=== PATIENT | male | born 1940 | race Caucasian/White ===

== ENCOUNTER 2017-07-02 09:42 | Observation (INO) | payer MEDICARE ==
[~2017-07-02] VITALS: Ht 190.5 cm; Wt 109.3 kg
[2017-07-02 09:59] LABS: BASOPHILS % (AUTO) 0.7 % (0.0-5.0); EOSINOPHILS % (AUTO) 3.3 % (0.0-8.0); HEMATOCRIT 42.5 % (42-54); LYMPHOCYTES % (AUTO) 26.3 % (21.0-51.0); MEAN CORPUSCULAR HEMOGLOBIN 28.4 pg (27.0-33.0); MEAN CORPUSCULAR HGB CONC 32.9 g/dL (32.0-36.0); MEAN CORPUSCULAR VOLUME 86.2 fL (79-99); MONOCYTES % (AUTO) 8.6 % (3.0-13.0); NEUTROPHILS % (AUTO) 61.1 % (40.0-77.0); PLATELET COUNT (AUTO) 145 K/uL (130-400); RED BLOOD CELL COUNT(AUTO) 4.93 MIL/uL (4.50-6.20); RED CELL DISTRIBUTION WIDTH 14.9 % (11.0-15.5); WHITE BLOOD COUNT (AUTO) 5.3 K/uL (4.8-10.8)
[2017-07-02 10:07] LABS: CREATININE 1.1 mg/dL (0.5-1.5); POTASSIUM 4.3 mmol/L (3.5-5.1)
[2017-07-02 10:21] LABS: ALBUMIN 3.6 g/dL (3.5-5.0); BILIRUBIN,TOTAL 0.8 mg/dL (0.2-1.0); CREATINE KINASE MB 1.7 ng/mL (0.5-3.6); TOTAL PROTEIN, SERUM 6.7 g/dL (6.0-8.3)
[2017-07-02 10:33] LABS: INR 0.95 (0.85-1.15); PARTIAL THROMBOPLASTIN TIME 24.8 SEC (26.3-35.5)
[2017-07-02] MEDS ORDERED: HYDRALAZINE HCL 20 MG/ML VIAL IV PRN (11:15)
[2017-07-02] MEDS ORDERED: LACTULOSE 20 GM/30 ML UDCUP PO PRN (11:15)
[2017-07-02] MEDS ORDERED: NITROGLYCERIN 1GM/1 INCH PACKET TD SCH (11:15)
[2017-07-02] MEDS ORDERED: ACETAMINOPHEN-CODEINE 300/30MG TAB PO PRN ×2 (11:15)
[2017-07-02] MEDS ORDERED: MAG HYDROX/AL HYDROX/SIMETH ES 30 ML SUSP UDCUP PO PRN (11:15)
[2017-07-02] MEDS ORDERED: MORPHINE SULFATE 4 MG/1ML SYG IV PRN (11:15)
[2017-07-02] MEDS ORDERED: POTASSIUM CHLORIDE 20 MEQ ERTAB PO PRN (11:15)
[2017-07-02] MEDS ORDERED: MORPHINE SULFATE 2 MG/ML 1ML SYG IV PRN (11:15)
[2017-07-02] MEDS ORDERED: ACETAMINOPHEN 325 MG TAB PO PRN ×2 (11:15)
[2017-07-02] MEDS ORDERED: LIDOCAINE HCL-MPF 1% 2ML VIAL IVP PRN (11:15)
[2017-07-02] MEDS ORDERED: POTASSIUM CHLORIDE 10% ELIXIR 20 MEQ/15 ML UDCUP PO PRN (11:15)
[2017-07-02] MEDS ORDERED: POTASSIUM CHLORIDE 20MEQ/100ML 100 ML IV PRN (11:15)
[2017-07-02] MEDS ORDERED: ONDANSETRON HCL 4 MG/2 ML VIAL IV PRN (11:15)
[2017-07-02] MEDS ORDERED: NITROGLYCERIN 0.4 MG SL TAB SL PRN (11:15)
[2017-07-02] MEDS ORDERED: GUAIFENESIN-DM 200/20 MG 10 ML PO PRN (11:15)
[2017-07-02] MEDS ORDERED: NITROGLYCERIN 1GM/1 INCH PACKET TD ONE (13:34)
[2017-07-02] MEDS ORDERED: IOPAMIDOL-370 100 ML VIAL IV ONE (13:50)
[2017-07-02 15:28] VITALS: BP 124/69
[2017-07-02] MEDS ORDERED: METO25TA3 PO (16:44)
[2017-07-02] MEDS ORDERED: TAMS0.4C32 PO (16:44)
[2017-07-02] MEDS ORDERED: LOVA40TA2 PO (16:44)
[2017-07-02] MEDS ORDERED: C,E,1CAP PO (16:44)
[2017-07-02] MEDS ORDERED: MAGN250T10 PO (16:44)
[2017-07-02] MEDS ORDERED: AEC81 PO (16:44)
[2017-07-02] MEDS ORDERED: GARL1000 PO (16:44)
[2017-07-02] MEDS ORDERED: ROPI5TAB2 PO (16:44)
[2017-07-02] MEDS ORDERED: FISH1CAP20 PO (16:44)
[2017-07-02] MEDS ORDERED: MULTIVITAMIN PO (16:44)
[2017-07-02 18:35] LABS: CREATINE KINASE MB 1.3 ng/mL (0.5-3.6); CREATINE KINASE, TOTAL 131 U/L (21-232); MYOGLOBIN 57 ng/mL (10-92); TROPONIN I < 0.04 ng/mL (0.00-0.06)
[2017-07-02 19:40] VITALS: BP 102/50
[2017-07-02] MEDS: METOPROLOL TARTRATE 25 MG TAB PO SCH (20:39)
[2017-07-02] MEDS: NITROGLYCERIN 1GM/1 INCH PACKET TD SCH (20:40)
[2017-07-02] MEDS ORDERED: GABA-531 PO (20:46)
[2017-07-02 23:58] VITALS: BP 111/55
[2017-07-03 03:48] VITALS: BP 124/68
[2017-07-03 04:31] LABS: CARBON DIOXIDE 28 mmol/L (21-32); CHLORIDE 106 mmol/L (101-111); CREATINE KINASE MB 1.2 ng/mL (0.5-3.6); CREATINE KINASE, TOTAL 129 U/L (21-232); GLOMERULAR FILTR. RATE CALC 77 mL/min (>60); GLUCOSE,RANDOM 102 mg/dL (70-105); MYOGLOBIN 65 ng/mL (10-92); POTASSIUM 4.5 mmol/L (3.5-5.1); SODIUM SERUM 141 mmol/L (136-145); TROPONIN I < 0.04 ng/mL (0.00-0.06); UREA NITROGEN, BLOOD 23 mg/dL (7-18)
[2017-07-03] MEDS: NITROGLYCERIN 1GM/1 INCH PACKET TD SCH ×2 (04:43→12:53)
[2017-07-03 07:35] VITALS: BP 115/63
[2017-07-03] MEDS ORDERED: PANTOPRAZOLE SODIUM 40 MG TABLET.DR PO SCH (09:00)
[2017-07-03] MEDS ORDERED: MAGNESIUM OXIDE 400 MG TABLET PO SCH (09:00)
[2017-07-03] MEDS ORDERED: ENOXAPARIN SODIUM 40 MG/0.4 ML SYRINGE SQ SCH (09:00)
[2017-07-03] MEDS ORDERED: GABAPENTIN 300 MG CAPSULE PO SCH (09:00)
[2017-07-03] MEDS ORDERED: ASPIRIN 81 MG EC TAB PO SCH (09:00)
[2017-07-03] MEDS ORDERED: MULTIVITAMIN TABLET PO SCH (09:00)
[2017-07-03] MEDS ORDERED: ASPIRIN 325 MG TABLET PO SCH (09:00)
[2017-07-03] MEDS: METOPROLOL TARTRATE 25 MG TAB PO SCH (09:09)
[2017-07-03 11:10] VITALS: BP 118/50
[2017-07-03] MEDS ORDERED: ATORVASTATIN CALCIUM 10 MG TABLET PO SCH (21:00)
[2017-07-03] MEDS ORDERED: ROPINIROLE HCL 5 MG TABLET PO SCH (21:00)
[2017-07-03] MEDS ORDERED: TAMSULOSIN HCL 0.4 MG CAP.ER.24H PO SCH (21:00)
[2017-08-18] MEDS ORDERED: MVIT PO (09:32)
[2017-08-21] MEDS ORDERED: CLOP75TA14 PO (09:46)
== END 2017-07-03 15:40 | disposition home or self-care (01) ==
LOC: EDH 09:42 → EDHIP 11:10 → 2AH 15:34
PROVIDERS: ADMIT Internal Medicine; ATTEND Internal Medicine
DX: R07.89 Other chest pain (principal); I25.10 Atherosclerotic heart disease of native coronary artery without angina pectoris; E78.5 Hyperlipidemia, unspecified; Z87.891 Personal history of nicotine dependence; Z82.49 Family history of ischemic heart disease and other diseases of the circulatory system; Z95.1 Presence of aortocoronary bypass graft; Z95.5 Presence of coronary angioplasty implant and graft
CPT/HCPCS: 36415 ×2; 71275; 80048; 80053; 82550 ×3; 82553 ×3; 83874 ×2; 84484 ×3; 85025; 85378; 85610; 85730; 93005; 93970; 96372; 99285; G0378 ×28; J1650; Q9967; 71010

== ENCOUNTER 2017-07-07 12:27 | Emergency (ER) | payer MEDICARE ==
[~2017-07-07 12:27] MED LIST: AEC81 PO; C,E,1CAP PO; FISH1CAP20 PO; GABA-531 PO; GARL1000 PO; LOVA40TA2 PO; MAGN250T10 PO; METO25TA3 PO; MULTIVITAMIN PO; ROPI5TAB2 PO; TAMS0.4C32 PO
[2017-08-18] MEDS ORDERED: MVIT PO (09:32)
[2017-08-21] MEDS ORDERED: CLOP75TA14 PO (09:46)
== END 2017-07-07 13:31 | disposition home or self-care (01) ==
LOC: EDH 12:27
DX: T16.1XXA Foreign body in right ear, initial encounter (principal); E78.5 Hyperlipidemia, unspecified; I25.10 Atherosclerotic heart disease of native coronary artery without angina pectoris; I10 Essential (primary) hypertension; Z95.0 Presence of cardiac pacemaker; Z88.0 Allergy status to penicillin; Z88.2 Allergy status to sulfonamides; X58.XXXA Exposure to other specified factors, initial encounter; Y93.89 Activity, other specified; Y92.89 Other specified places as the place of occurrence of the external cause; Y99.8 Other external cause status
CPT/HCPCS: 69200

== ENCOUNTER → 2017-07-27 | Outpatient (CLI) | payer MEDICARE ==
[~2017-07-27] MED LIST changes: +CLOP75TA14 PO; +MVIT PO
== END | disposition home or self-care (01) ==
LOC: SHCH 09:33
PROVIDERS: ATTEND Internal Medicine Cardiovascular Disease
DX: I51.7 Cardiomegaly (principal); Z95.0 Presence of cardiac pacemaker
CPT/HCPCS: 93306

== ENCOUNTER → 2017-08-03 | Outpatient (CLI) | payer MEDICARE ==
[~2017-08-03] MED LIST changes: +REGADENOSON 0.4 MG/5 ML PF SYG IVP SCH
== END | disposition home or self-care (01) ==
LOC: SHCH 08:51
PROVIDERS: ATTEND Internal Medicine Cardiovascular Disease
DX: I20.9 Angina pectoris, unspecified (principal)
CPT/HCPCS: 78452; 93017; 96374; A9500 ×2; J2785

== ENCOUNTER 2018-06-15 23:47 | Emergency (ER) | payer MEDICARE ==
[~2018-06-15 23:47] MED LIST changes: -GABA-531 PO; -MULTIVITAMIN PO; -REGADENOSON 0.4 MG/5 ML PF SYG IVP SCH; -ROPI5TAB2 PO; +ROPI5TAB4 PO
[2018-06-16] MEDS ORDERED: KETOROLAC TROMETHAMINE 15MG/ML ONE (00:12)
[2018-06-16 00:21] LABS: BASOPHILS % (AUTO) 0.9 % (0.0-5.0); EOSINOPHILS % (AUTO) 3.9 % (0.0-8.0); HEMATOCRIT 45.2 % (42-54); MEAN CORPUSCULAR HEMOGLOBIN 28.8 pg (27.0-33.0); MEAN CORPUSCULAR HGB CONC 33.4 g/dL (32.0-36.0); MEAN CORPUSCULAR VOLUME 86.2 fL (79-99); MONOCYTES % (AUTO) 12.5 % (3.0-13.0); NEUTROPHILS % (AUTO) 55.7 % (40.0-77.0); PLATELET COUNT (AUTO) 156 K/uL (130-400); RED BLOOD CELL COUNT(AUTO) 5.24 MIL/uL (4.50-6.20); RED CELL DISTRIBUTION WIDTH 14.7 % (11.0-15.5); WHITE BLOOD COUNT (AUTO) 5.1 K/uL (4.8-10.8)
[2018-06-16 00:28] LABS: CREATININE 1.2 mg/dL (0.5-1.5); POTASSIUM 4.5 mmol/L (3.5-5.1)
[2018-06-16 00:30] LABS: INR 0.95 (0.85-1.15); PARTIAL THROMBOPLASTIN TIME 25.4 SEC (26.3-35.5)
[2018-06-16 00:37] LABS: B-TYPE NATRIURETIC PEPTIDE 66 pg/mL (0-100)
[2018-06-16 00:39] LABS: ALBUMIN 3.6 g/dL (3.5-5.0); BILIRUBIN,TOTAL 0.6 mg/dL (0.2-1.0); TOTAL PROTEIN, SERUM 7.3 g/dL (6.0-8.3)
[2018-06-16 01:55] LABS: APPEARANCE,URINE Clear (CLEAR); BILIRUBIN,URINE Negative (NEGATIVE); COLOR,URINE Yellow (YELLOW); GLUCOSE, URINE (UA) Negative (NEGATIVE); KETONES,URINE Trace mg/dL (NEGATIVE); LEUKOCYTE ESTERASE ,URINE Negative (NEGATIVE); NITRATE,URINE Negative (NEGATIVE); OCCULT BLOOD,URINE Negative (NEGATIVE); PROTEIN,URINE Negative (NEGATIVE); UROBILINOGEN,URINE 0.2 mg/dL (0.2-1.0)
== END 2018-06-16 03:04 | disposition home or self-care (01) ==
LOC: EDH 23:47
DX: R10.9 Unspecified abdominal pain (principal); I10 Essential (primary) hypertension; I25.810 Atherosclerosis of coronary artery bypass graft(s) without angina pectoris; E78.5 Hyperlipidemia, unspecified; Z98.890 Other specified postprocedural states; Z87.891 Personal history of nicotine dependence
CPT/HCPCS: 36415; 71045; 74176; 80053; 81003; 82550; 83690; 83874; 83880; 84484; 85025; 85610; 85730; 93005; 96374; 99284; J1885

== ENCOUNTER 2018-10-08 22:42 | Emergency (ER) | payer MEDICARE ==
[2018-10-08] MEDS ORDERED: LIDOCAINE 5% TOPICAL PATCH TP ONE (23:38)
[2018-10-09] MEDS ORDERED: ASPIRIN 325 MG TABLET ONE (00:18)
== END 2018-10-09 01:20 | disposition home or self-care (01) ==
LOC: EDH 22:42
DX: I82.4Z1 Acute embolism and thrombosis of unspecified deep veins of right distal lower extremity (principal); E78.5 Hyperlipidemia, unspecified; I10 Essential (primary) hypertension; I25.810 Atherosclerosis of coronary artery bypass graft(s) without angina pectoris; Z95.1 Presence of aortocoronary bypass graft; Z95.0 Presence of cardiac pacemaker; Z88.0 Allergy status to penicillin; Z88.2 Allergy status to sulfonamides; Z79.899 Other long term (current) drug therapy
CPT/HCPCS: 93971

== ENCOUNTER → 2019-08-14 | Outpatient (CLI) | payer MEDICARE | END | disposition home or self-care (01) | LOC: SHCH 13:37 | PROVIDERS: ATTEND Internal Medicine Cardiovascular Disease | DX: I08.1 Rheumatic disorders of both mitral and tricuspid valves (principal); I10 Essential (primary) hypertension | CPT/HCPCS: 93306; 93356 ==

== ENCOUNTER → 2019-08-20 | Outpatient (CLI) | payer MEDICARE | END | disposition home or self-care (01) | LOC: SHCH 15:53 | PROVIDERS: ATTEND Internal Medicine Cardiovascular Disease | DX: R09.89 Other specified symptoms and signs involving the circulatory and respiratory systems (principal); R60.9 Edema, unspecified | CPT/HCPCS: 93880; 93970 ==

== ENCOUNTER 2019-09-06 16:10 | Observation (INO) | payer MEDICARE ==
[2019-09-06] MEDS ORDERED: ASPIRIN 325 MG TABLET ONE (16:34)
[2019-09-06 16:36] LABS: BASOPHILS % (AUTO) 0.6 % (0.0-5.0); EOSINOPHILS % (AUTO) 3.9 % (0.0-8.0); HEMATOCRIT 42.7 % (42-54); LYMPHOCYTES % (AUTO) 23.2 % (21.0-51.0); MEAN CORPUSCULAR HEMOGLOBIN 28.4 pg (27.0-33.0); MEAN CORPUSCULAR HGB CONC 32.6 g/dL (32.0-36.0); MEAN CORPUSCULAR VOLUME 87.1 fL (79-99); MONOCYTES % (AUTO) 8.7 % (3.0-13.0); NEUTROPHILS % (AUTO) 63.4 % (40.0-77.0); PLATELET COUNT (AUTO) 160 K/uL (130-400); RED CELL DISTRIBUTION WIDTH 13.7 % (11.0-15.5); WHITE BLOOD COUNT (AUTO) 5.1 K/uL (4.8-10.8)
[2019-09-06 16:48] LABS: CREATININE 1.4 mg/dL (0.5-1.5); POTASSIUM 4.7 mmol/L (3.5-5.1)
[2019-09-06 16:51] LABS: INR 0.99 (0.85-1.15); PARTIAL THROMBOPLASTIN TIME 26.8 SEC (26.3-35.5); PROTHROMBIN TIME 10.7 SEC (9.6-11.6)
[2019-09-06 16:53] LABS: ALBUMIN 3.6 g/dL (3.5-5.0); BILIRUBIN,TOTAL 0.7 mg/dL (0.2-1.0); TOTAL PROTEIN, SERUM 7.1 g/dL (6.0-8.3)
[2019-09-06] MEDS ORDERED: IOHEXOL-350 75 ML VIAL IV ONE (19:25)
[2019-09-06] MEDS ORDERED: ACETAMINOPHEN 325 MG TAB PO PRN ×2 (23:45)
[2019-09-06] MEDS ORDERED: ONDANSETRON HCL 4 MG/2 ML VIAL IV PRN (23:45)
[2019-09-07] MEDS ORDERED: NITROGLYCERIN 1GM/1 INCH PACKET TD SCH (00:15)
[2019-09-07] MEDS ORDERED: HEPARIN SODIUM 5000UNIT/ML 1ML VIAL SQ SCH (00:15)
[2019-09-07] MEDS ORDERED: HEPARIN SODIUM 5000UNIT/ML 1ML VIAL ONE (00:18)
[2019-09-07] MEDS ORDERED: NITROGLYCERIN 1GM/1 INCH PACKET TD ONE (00:18)
[2019-09-07 06:15] LABS: BASOPHILS % (AUTO) 0.7 % (0.0-5.0); EOSINOPHILS % (AUTO) 3.6 % (0.0-8.0); HEMATOCRIT 42.9 % (42-54); MEAN CORPUSCULAR HEMOGLOBIN 28.1 pg (27.0-33.0); MEAN CORPUSCULAR HGB CONC 31.9 g/dL (32.0-36.0); MEAN CORPUSCULAR VOLUME 88.1 fL (79-99); NEUTROPHILS % (AUTO) 57.5 % (40.0-77.0); PLATELET COUNT (AUTO) 143 K/uL (130-400); RED BLOOD CELL COUNT(AUTO) 4.87 MIL/uL (4.50-6.20); RED CELL DISTRIBUTION WIDTH 13.8 % (11.0-15.5); WHITE BLOOD COUNT (AUTO) 4.1 K/uL (4.8-10.8)
[2019-09-07 06:36] LABS: ALBUMIN 3.4 g/dL (3.5-5.0); BILIRUBIN,TOTAL 0.8 mg/dL (0.2-1.0); CREATININE 1.2 mg/dL (0.5-1.5); POTASSIUM 4.2 mmol/L (3.5-5.1); TOTAL PROTEIN, SERUM 6.8 g/dL (6.0-8.3)
[2019-09-07 07:00] VITALS: BP 127/64
[2019-09-07] MEDS ORDERED: ASPIRIN 81MG TAB.CHEW PO SCH (09:00)
[2019-09-07] MEDS ORDERED: FAMOTIDINE 20MG TAB 20 MG TAB PO SCH (09:00)
[2019-09-07] MEDS ORDERED: APIXABAN 2.5 MG TABLET PO ONE (09:02)
[2019-09-07] MEDS ORDERED: ROPI5TAB4 PO (09:02)
[2019-09-07] MEDS ORDERED: APIX5TAB PO (09:02)
[2019-09-07] MEDS ORDERED: MULT-729 PO (09:02)
[2019-09-07] MEDS ORDERED: VITS1TAB3 PO (09:02)
[2019-09-07] MEDS ORDERED: OMEG-96 PO (09:02)
[2019-09-07] MEDS ORDERED: ASPIRIN 81MG TAB.CHEW ONE (09:29)
[2019-09-07 11:00] VITALS: BP 131/64
--- NOTE | 2019-09-07 11:45 | NUR ---
PATIENT DISCHARGED HOME FROM ER AT THIS TIME; ALL DC INSTRUCTIONS GIVEN; NO NEW PRESCRIPTIONS; ALL QUESTIONS ANSWERED; PATIENT TO FOLLOW UP WITH IN [place]; AT BEDSIDE; PIV X2 REMOVED
== END 2019-09-07 11:49 | disposition home or self-care (01) ==
LOC: EDH 16:10 → EDHIP 23:40
PROVIDERS: ADMIT Internal Medicine; ATTEND Internal Medicine
DX: I82.433 Acute embolism and thrombosis of popliteal vein, bilateral (principal); I25.10 Atherosclerotic heart disease of native coronary artery without angina pectoris; I10 Essential (primary) hypertension; E78.5 Hyperlipidemia, unspecified; Z95.0 Presence of cardiac pacemaker; Z95.1 Presence of aortocoronary bypass graft; Z96.653 Presence of artificial knee joint, bilateral; Z88.0 Allergy status to penicillin; Z88.2 Allergy status to sulfonamides; Z87.891 Personal history of nicotine dependence; Z79.899 Other long term (current) drug therapy; Z90.49 Acquired absence of other specified parts of digestive tract
CPT/HCPCS: 36415 ×2; 71045; 71275; 80053 ×2; 80061; 82550; 84443; 84484 ×4; 85025 ×2; 85610; 85730; 93005 ×2; 99285; G0378 ×2; J1644; Q9967

== ENCOUNTER → 2020-07-02 | Outpatient (CLI) | payer MEDICARE ==
[~2020-07-02] MED LIST changes: -AEC81 PO; +APIX5TAB PO; -CLOP75TA14 PO; +MULT-729 PO; +OMEG-96 PO; -TAMS0.4C32 PO; +VITS1TAB3 PO
== END | disposition home or self-care (01) ==
LOC: SHCH 14:02
PROVIDERS: ATTEND Internal Medicine Cardiovascular Disease
DX: R60.9 Edema, unspecified (principal)
CPT/HCPCS: 93970

== ENCOUNTER → 2020-09-14 | Outpatient (CLI) | payer MEDICARE | END | disposition home or self-care (01) | LOC: SHCH 11:18 | PROVIDERS: ATTEND Internal Medicine Cardiovascular Disease | DX: I87.2 Venous insufficiency (chronic) (peripheral) (principal); Z09 Encounter for follow-up examination after completed treatment for conditions other than malignant neoplasm | CPT/HCPCS: 93971 ==

== ENCOUNTER → 2020-09-28 | Outpatient (CLI) | payer MEDICARE | END | disposition home or self-care (01) | LOC: SHCH 10:23 | PROVIDERS: ATTEND Internal Medicine Cardiovascular Disease | DX: Z09 Encounter for follow-up examination after completed treatment for conditions other than malignant neoplasm (principal); I87.2 Venous insufficiency (chronic) (peripheral) | CPT/HCPCS: 93971 ==

== ENCOUNTER 2021-06-26 12:50 | Emergency (ER) | payer MEDICARE ==
[~2021-06-26] VITALS: Ht 190.5 cm; Wt 108.9 kg
[2021-06-26] MEDS ORDERED: IPRATROPIUM/ALBUTEROL SULFATE 3 ML SOLUTION IH ONE ×2 (13:10→13:30)
[2021-06-26] MEDS ORDERED: PREDNISONE 20 MG TABLET ONE (13:17)
[2021-06-26] MEDS ORDERED: CEFTRIAXONE 1G VIAL ONE (13:17)
[2021-06-26] MEDS ORDERED: AZITHROMYCIN 250 MG TABLET PO ONE ×2 (13:18→13:30)
[2021-06-26 13:19] LABS: BASOPHILS % (AUTO) 0.4 % (0.0-5.0); EOSINOPHILS % (AUTO) 2.3 % (0.0-8.0); HEMATOCRIT 39.6 % (42-54); LYMPHOCYTES % (AUTO) 16.9 % (21.0-51.0); MEAN CORPUSCULAR HEMOGLOBIN 28.3 pg (27.0-33.0); MEAN CORPUSCULAR HGB CONC 31.8 g/dL (32.0-36.0); MONOCYTES % (AUTO) 10.3 % (3.0-13.0); NEUTROPHILS % (AUTO) 69.6 % (40.0-77.0); PLATELET COUNT (AUTO) 149 K/uL (130-400); RED BLOOD CELL COUNT(AUTO) 4.45 MIL/uL (4.50-6.20); RED CELL DISTRIBUTION WIDTH 13.4 % (11.0-15.5); WHITE BLOOD COUNT (AUTO) 7.9 K/uL (4.8-10.8)
[2021-06-26] MEDS ORDERED: PREDNISONE 20 MG TABLET PO ONE (13:30)
[2021-06-26] MEDS ORDERED: CEFTRIAXONE 1G VIAL IVP ONE (13:30)
[2021-06-26] MEDS ORDERED: ACETAMINOPHEN WITH CODEINE 1 TAB TAB PO ONE (13:30)
[2021-06-26 13:41] LABS: CREATININE 1.1 mg/dL (0.5-1.5); POTASSIUM 4.3 mmol/L (3.5-5.1)
[2021-06-26 13:47] LABS: ALBUMIN 3.3 g/dL (3.5-5.0); BILIRUBIN,TOTAL 1.1 mg/dL (0.2-1.0); CRP QUANTITATIVE 96.9 mg/L (0.00-9.0)
[2021-06-26 14:12] VITALS: BP 115/55
[2021-06-26] MEDS ORDERED: DOXY-336 PO (14:17)
[2021-06-26] MEDS ORDERED: ALBU8.5H8 IH (14:17)
[2021-06-26] MEDS ORDERED: PRED20TA3 PO (14:17)
[2021-06-26] MEDS ORDERED: ALBU2.5V2 IH (14:17)
[2021-06-26] MEDS ORDERED: D-ME1POW16 PO (14:17)
== END 2021-06-26 14:30 | disposition home or self-care (01) ==
LOC: EDH 12:50
DX: M94.0 Chondrocostal junction syndrome [Tietze] (principal); J40 Bronchitis, not specified as acute or chronic; Z20.822 Contact with and (suspected) exposure to COVID-19; Z88.2 Allergy status to sulfonamides; E78.00 Pure hypercholesterolemia, unspecified; E66.9 Obesity, unspecified; Z79.01 Long term (current) use of anticoagulants; Z79.52 Long term (current) use of systemic steroids; Z79.899 Other long term (current) drug therapy; Z88.0 Allergy status to penicillin; Z90.49 Acquired absence of other specified parts of digestive tract; Z95.1 Presence of aortocoronary bypass graft; Z95.810 Presence of automatic (implantable) cardiac defibrillator
CPT/HCPCS: 36415; 71045; 80053; 84484; 85025; 86140; 87635; 87804 ×2; 94640; 96374; 99284; C9803; J0696

== ENCOUNTER 2021-07-06 07:25 | Emergency (ER) | payer MEDICARE ==
[~2021-07-06] VITALS: Ht 190.5 cm; Wt 104.3 kg
[~2021-07-06 07:25] MED LIST changes: +ALBU2.5V2 IH; +ALBU8.5H8 IH; +D-ME1POW16 PO; +DOXY-336 PO; +PRED20TA3 PO
[2021-07-06 08:10] LABS: BASOPHILS % (AUTO) 0.4 % (0.0-5.0); EOSINOPHILS % (AUTO) 3.4 % (0.0-8.0); LYMPHOCYTES % (AUTO) 14.1 % (21.0-51.0); MEAN CORPUSCULAR HEMOGLOBIN 27.9 pg (27.0-33.0); MEAN CORPUSCULAR HGB CONC 31.9 g/dL (32.0-36.0); MEAN CORPUSCULAR VOLUME 87.5 fL (79-99); NEUTROPHILS % (AUTO) 74.5 % (40.0-77.0); PLATELET COUNT (AUTO) 142 K/uL (130-400); RED CELL DISTRIBUTION WIDTH 13.7 % (11.0-15.5)
[2021-07-06 08:15] LABS: CREATININE 1.1 mg/dL (0.5-1.5); POTASSIUM 4.1 mmol/L (3.5-5.1)
[2021-07-06 08:20] LABS: ALBUMIN 3.1 g/dL (3.5-5.0); BILIRUBIN,TOTAL 1.3 mg/dL (0.2-1.0); TOTAL PROTEIN, SERUM 6.6 g/dL (6.0-8.3)
[2021-07-06 08:40] LABS: B-TYPE NATRIURETIC PEPTIDE 83 pg/mL (0-100)
[2021-07-06 10:14] VITALS: BP 120/57
== END 2021-07-06 10:14 | disposition home or self-care (01) ==
LOC: EDH 07:25
DX: M94.0 Chondrocostal junction syndrome [Tietze] (principal); E78.5 Hyperlipidemia, unspecified; I11.9 Hypertensive heart disease without heart failure; I25.10 Atherosclerotic heart disease of native coronary artery without angina pectoris; Z88.0 Allergy status to penicillin; Z88.2 Allergy status to sulfonamides; Z79.01 Long term (current) use of anticoagulants; Z79.52 Long term (current) use of systemic steroids; Z79.899 Other long term (current) drug therapy; Z95.810 Presence of automatic (implantable) cardiac defibrillator
CPT/HCPCS: 36415; 71045; 80053; 83880; 84484; 85025; 93005

== ENCOUNTER 2021-08-16 13:04 | Emergency (ER) | payer MEDICARE ==
[~2021-08-16] VITALS: Ht 190.5 cm; Wt 104.3 kg
[2021-08-16 14:00] LABS: BASOPHILS % (AUTO) 0.9 % (0.0-5.0); EOSINOPHILS % (AUTO) 4.1 % (0.0-8.0); HEMATOCRIT 43.5 % (42-54); LYMPHOCYTES % (AUTO) 25.5 % (21.0-51.0); MEAN CORPUSCULAR HEMOGLOBIN 28.3 pg (27.0-33.0); MEAN CORPUSCULAR HGB CONC 31.7 g/dL (32.0-36.0); MEAN CORPUSCULAR VOLUME 89.3 fL (79-99); MONOCYTES % (AUTO) 9.5 % (3.0-13.0); NEUTROPHILS % (AUTO) 59.8 % (40.0-77.0); PLATELET COUNT (AUTO) 153 K/uL (130-400); RED BLOOD CELL COUNT(AUTO) 4.87 MIL/uL (4.50-6.20); RED CELL DISTRIBUTION WIDTH 13.9 % (11.0-15.5); WHITE BLOOD COUNT (AUTO) 4.6 K/uL (4.8-10.8)
[2021-08-16 14:10] LABS: POTASSIUM 4.7 mmol/L (3.5-5.1)
[2021-08-16 14:15] LABS: ALBUMIN 3.5 g/dL (3.5-5.0); BILIRUBIN,TOTAL 0.8 mg/dL (0.2-1.0); TOTAL PROTEIN, SERUM 6.9 g/dL (6.0-8.3)
[2021-08-16 14:23] LABS: B-TYPE NATRIURETIC PEPTIDE 126 pg/mL (0-100)
[2021-08-16 15:47] VITALS: BP 131/65
[2021-08-16 15:50] LABS: APPEARANCE,URINE Clear (CLEAR); BILIRUBIN,URINE Negative (NEGATIVE); COLOR,URINE Yellow (YELLOW); GLUCOSE, URINE (UA) Negative (NEGATIVE); KETONES,URINE Negative (NEGATIVE); LEUKOCYTE ESTERASE ,URINE Trace (NEGATIVE); NITRATE,URINE Negative (NEGATIVE); OCCULT BLOOD,URINE Negative (NEGATIVE); PROTEIN,URINE Negative (NEGATIVE); UROBILINOGEN,URINE 0.2 mg/dL (0.2-1.0)
[2021-08-16 16:11] LABS: BACTERIA,URINE Rare /HPF (None Seen); RBC,URINE 0-1 /HPF (0-1); SQUAMOUS EPITHELIAL CELL,UR Rare /HPF (0-2); WBC,URINE 0-1 /HPF (0-1)
== END 2021-08-16 16:00 | disposition home or self-care (01) ==
LOC: EDH 13:04
DX: R42 Dizziness and giddiness (principal); I11.0 Hypertensive heart disease with heart failure; E78.00 Pure hypercholesterolemia, unspecified; Z98.890 Other specified postprocedural states; Z88.0 Allergy status to penicillin; Z88.2 Allergy status to sulfonamides; Z79.899 Other long term (current) drug therapy
CPT/HCPCS: 36415; 70450; 71045; 80053; 81001; 82550; 83880; 84484; 85025; 93005